=== PATIENT | female | born 1980 | race African-American/Black ===

== ENCOUNTER 2017-09-17 12:19 | Emergency (ER) | payer SELFPAY ==
[~2017-09-17] VITALS: Ht 160 cm; Wt 95.0 kg
[~2017-09-17 12:19] MED LIST: AMOXICILLIN500 MG PO; DIFLUCAN150 MG OR; FERROUS SULF325 M1 PO; HYDROCHLOROT12.5 MG PO; KEFLEX500 M1 PO; MEDROXYPROGESTE10 MG PO; NAPROSYN500 MG OR; NECON; PRILOSEC40 MG PO; PROTONIX40 M2 PO; VOSOL2 % OT; [UNRECOGNIZED DRUG - OTHER] PO
[2017-09-17 12:26] VITALS: BP 158/109
[2017-09-17] MEDS ORDERED: MOTRIN800 MG PO (12:42)
== END 2017-09-17 12:50 | disposition home or self-care (01) | DRG 563 ==
LOC: ED 12:19
DX: S46.812A Strain of other muscles, fascia and tendons at shoulder and upper arm level, left arm, initial encounter (principal); X50.0XXA Overexertion from strenuous movement or load, initial encounter; Y93.89 Activity, other specified; Y92.89 Other specified places as the place of occurrence of the external cause

== ENCOUNTER 2019-07-14 21:06 | Emergency (ER) | payer BC ==
[~2019-07-14] VITALS: Ht 160 cm; Wt 100.0 kg
[~2019-07-14 21:06] MED LIST changes: +MOTRIN800 MG PO
[2019-07-14 22:05] VITALS: BP 182/90
== END 2019-07-14 22:06 | disposition home or self-care (01) | DRG 605 ==
LOC: ED 21:06
PROC: 0HQ1XZZ Repair Face Skin, External Approach (ICD-10-PCS; principal; 2019-07-14)
DX: S01.412A Laceration without foreign body of left cheek and temporomandibular area, initial encounter (principal); I10 Essential (primary) hypertension; W01.110A Fall on same level from slipping, tripping and stumbling with subsequent striking against sharp glass, initial encounter; Y92.009 Unspecified place in unspecified non-institutional (private) residence as the place of occurrence of the external cause

== ENCOUNTER 2019-07-21 12:31 | Emergency (ER) | payer BC ==
[~2019-07-21] VITALS: Ht 160 cm; Wt 104.0 kg
[2019-07-21 13:10] VITALS: BP 135/77
== END 2019-07-21 13:10 | disposition home or self-care (01) | DRG 950 ==
LOC: ED 12:31
DX: S01.412D Laceration without foreign body of left cheek and temporomandibular area, subsequent encounter (principal); X58.XXXD Exposure to other specified factors, subsequent encounter

== ENCOUNTER 2020-06-08 08:50 | Observation (INO) | payer BC ==
[~2020-06-08] VITALS: Ht 160 cm; Wt 62.6 kg
[2020-06-08] VITALS (9 sets, daily range): BP systolic 119–163; BP diastolic 75–95
--- NOTE | 2020-06-08 09:18 | NUR ---
PATIENT AMBULATE TO ROOM WITH STEADY GAIT AND PHYSICIAN NOTIFIED OF PATIENT STATUS
[2020-06-08 10:04] LABS: HEMATOCRIT 34.4 % (37.0-47.0); IMMATURE GRANULOCYTES 0.8 % (0.0-5.0); MEAN CELL VOLUME 78.4 fL CALC (80.0-100.0); MEAN CORPUSCULAR HGB 21.9 pG CALC (26.0-32.0); MEAN CORPUSCULAR HGB CONC 27.9 g/dL CAL (32.0-36.0); NEUT# 6.08 thou/uL (2.00-7.15); RED BLOOD COUNT 4.39 mill/uL (4.20-5.60); RED CELL DISTRI WIDTH 17.9 % (11.5-15.5)
[2020-06-08 10:15] LABS: ALBUMIN 4.6 g/dL (3.2-5.0); ALKALINE PHOSPHATASE 60 u/l (38-126); AMYLASE 93 u/l (30-110); ANION GAP 12 (6-22 (CALC)); BILIRUBIN, TOTAL 0.3 mg/dL (0.0-1.4); BUN 11 mg/dL (7-17); BUN/CREATININE RATIO 18 (12-20 (CALC)); CARBON DIOXIDE 25 mmol/l (22-30); CHLORIDE 103 mmol/l (95-108); CREATININE 0.6 mg/dL (0.5-1.0); GFR > 60 ML/MIN (>=60 (CALC)); GFR FOR AFR.AMER. > 60 ML/MIN (>=60 (CALC)); HEMOGLOBIN 9.6 g/dl (12.0-16.0); LIPASE 109 u/l (23-300); SGOT/AST 23 u/l (14-36); SODIUM 137 mmol/l (137-146); TOTAL PROTEIN 8.4 g/dL (6.3-8.2)
--- NOTE | 2020-06-08 10:15 | NUR ---
PT STATES PPAIN REMAINS BUT IMPROVED, STILL A DULL ACHE BUT NOT LIKE IT WAS EARLIER. RAFAELS N/, CALL MARTINO WITHIN REACH.
--- NOTE | 2020-06-08 11:30 | NUR ---
INTO SEE PATIENT PLAN OF CARE DISCUSSED INCLUDING ADMISSIONA ND SURGERY, ALL QUESTIONS ANSWERED, PT GIVES VERBAL CONSENT
[2020-06-08 11:38] LABS: URINE BILIRUBIN - DIPSTICK NEGATIVE (NEGATIVE); URINE BLOOD DIPSTICK NEGATIVE (NEGATIVE); URINE COLOR YELLOW; URINE GLUCOSE - DIPSTICK NEGATIVE (NEGATIVE); URINE KETONE NEGATIVE (NEGATIVE); URINE LEUK ESTERASE TRACE (NEGATIVE); URINE NITRITE - DIPSTICK NEGATIVE (Negative); URINE PROTEIN - DIPSTICK TRACE mg/dL (NEG-TRACE); URINE UROBILINOGEN - DIPSTICK 0.2 E.U./dL (0.2)
--- NOTE | 2020-06-08 12:30 | NUR ---
IVF AND ABT INFUSING BC COMPLETED EARLIER. AWAITING PLANNED ADMISISION / OR.
--- NOTE | 2020-06-08 13:14 | NUR ---
AWARE OF ELEVATED B/P AND MEDICATION ORDERED, PT AWARE SHE WILL BE GOING TO OR SHORTLY. STATES SHE HAS HAD NOTHING TO EAT OR DRINK SINCE LAST PM AROUND 730.
--- NOTE | 2020-06-08 13:31 | NUR ---
OR AT BEDSIDE AWARE OF MEDICATED FOR HYPERTENSION AT 1325
--- NOTE | 2020-06-08 13:41 | NUR ---
PT RESPONDED WELL TO LABETOLOL B/P 174/75 PT EN ROUTE TO OR VIA OR STRETCHER WITH STAFF
--- NOTE | 2020-06-08 14:01 | NUR ---
CALLED TO GIVE REPORT TO MED SURG AWAITING CALL BACK FROM [facility]
--- NOTE | 2020-06-08 15:44 | NUR ---
PT ARRIVED TO [facility] ROOM 277 VIA STRETCHER ACCOMPAINED BY OR STAFF.PT HAD LAPAROSCOPIC CHOLECYSTECTOMY BY DR FIGUEROA. PT TRANSFERFROM STRETCHER TO BED WITH LITTLE DIFFICULTY. INTRODUCED SELF TO PT AND DISCUSSED POC. ASSESSMENT AND VITALS COMPLETED AT THIS TIME. RESPIRATIONS ARE EVEN AND UNLABORED WITH NO SIGNS OF DISTRESS. LUNG SOUND SARE DIMINISHED. HEART RHYTHM IS NORMAL. BOWEL SOUNDS AREACTIVE IN ALL QUADRANTS, LAST REPORTED BM 06/08/20. RADIAL AND PEDAL PUSLES ARE STRONG WITH NROMAL CAPILLARY REFILL #20 IN RAC RUNNING WITH NS AT 100ML ORDERED, SITE APPEARS HEALTHY AND PATENT. PT COMPLAINS OF 4/10 PAIN AT THIS TIME. PT APPEARS TO BE VERY DROWSY, ADVISED PT TO WAIT BEFORE ADMINISTERED PAIN MEDICATION, PT VERBALIZED UNDERSTANDING. PT INFORMED NWRITTER OF ALLERGIES TO PENICILLINS, ALLERGY ABDN APPLIED. PT ORIENTED TO ROOM AND CALL LIGHT SYSTEM. ALL SAEFTY PRECAUTIONS ARE IN PLACE WITH CALL LIGHT IN REACH. WILL CONTINUE TO MONITOR
--- NOTE | 2020-06-08 17:35 | NUR ---
DR FIGUEROA CALLED ABOUT PT BP AT THIS TIME. HYDRALAZINE 10 MG IV PUSH ORDERED.AWAITING FOR VERIFICATION FROM PHARMACY. RESPIRATIONS ARE EVEN AND UNLABROED WITH NO SIGNS OF DISTRESS.ALL SAFETY PRECAUTIONS ARE IN PLACE WITH CALL LIGHT IN REACH. WILL CONTINUE TO MONITOR
--- NOTE | 2020-06-08 19:00 | NUR ---
RECEIVED REPORT FROM NURSE DUONG PATIENT RESTING IN BED, WATCHING TV C/O ABDOMINAL PAIN PS 7, BREATHING EVEN UNLABORED, CALL LIGHT AT REACH.
--- NOTE | 2020-06-08 20:30 | NUR ---
PATIENT ALERT ORIENTED, ABLE TO MAKE NEEDS KNOWN, WITH ONGOING IV OF D5 1/2 NS @ 100CC/HR, LBM 06/08, AMBULATORY, ABDOMINAL INCISION WITH DERMABOND, DENIES NAUSEA/ VOMITING CALL LIGHT AT REACH.
--- NOTE | 2020-06-09 | NUR ---
PATIENT APPEARS TO BE SLEEPING WITH EYES CLOSED CALL LIGHT AT REACH.
[2020-06-09 03:41] VITALS: BP 133/83
--- NOTE | 2020-06-09 04:00 | NUR ---
PATIENT APPEARS TO BE SLEEPING WITH EYES CLOSED, BREATHING EVEN UNLABORED, NOT IN DISTRESS CALL LIGHT AT REACH.
[2020-06-09 05:20] LABS: ALBUMIN 3.3 g/dL (3.2-5.0); BILIRUBIN, TOTAL 0.4 mg/dL (0.0-1.4); TOTAL PROTEIN 6.1 g/dL (6.3-8.2)
[2020-06-09] MEDS ORDERED: PERCOCET 5/325M1 TAB PO (07:54)
[2020-06-09 08:00] VITALS: BP 164/81
--- NOTE | 2020-06-09 08:00 | NUR ---
ASSESSMENT IS COMPLETED: IV SITE IS FREE FROM REDNESS OR EDEMA. HR IS REG,PULSES ARE STRONG X4, ABD IS SOFT WITH ACTIVE BS. BREATH SOUNDS ARE CLEAR,BILATERALLY. INCISIONS ARE CDI.
--- NOTE | 2020-06-09 11:20 | NUR ---
PT'S IV SITE DISCONTINUED CATHETER INTACT. NO REDNESS OR EDEMA. DISCHARGE INSTRUCTIONS GIVEN TO PT AND VERBALIZED UNDERSTANDING. Discharge instructions given. Patient verbalizes understanding of same. Discharged in stable condition via Wheelchair to Home with family. All belongings sent with pt.
== END 2020-06-09 11:22 | disposition home or self-care (01) | DRG 419 ==
LOC: ED 08:50 → ED-I 11:00 → ED 11:15 → MS2 11:16
PROVIDERS: Family Medicine; ADMIT Surgery; ATTEND Surgery
PROC: 0FT44ZZ Resection of Gallbladder, Percutaneous Endoscopic Approach (ICD-10-PCS; principal; 2020-06-08)
DX: K80.00 Calculus of gallbladder with acute cholecystitis without obstruction (principal); I10 Essential (primary) hypertension; Z20.828 Contact with and (suspected) exposure to other viral communicable diseases
CPT/HCPCS: J0131; J2710; Q9967

== ENCOUNTER 2020-09-19 10:03 | Emergency (ER) | payer BC ==
[~2020-09-19] VITALS: Ht 160 cm; Wt 100.0 kg
[~2020-09-19 10:03] MED LIST changes: +PERCOCET 5/325M1 TAB PO
[2020-09-19] MEDS ORDERED: NAPROXEN500 MG PO (11:04)
[2020-09-19 11:28] VITALS: BP 168/89
== END 2020-09-19 11:28 | disposition home or self-care (01) | DRG 563 ==
LOC: ED 10:03
DX: S93.401A Sprain of unspecified ligament of right ankle, initial encounter (principal); X50.0XXA Overexertion from strenuous movement or load, initial encounter; Y92.009 Unspecified place in unspecified non-institutional (private) residence as the place of occurrence of the external cause

== ENCOUNTER 2020-11-12 14:51 | Emergency (ER) | payer BC ==
[~2020-11-12] VITALS: Ht 160 cm; Wt 111.0 kg
[~2020-11-12 14:51] MED LIST changes: +NAPROXEN500 MG PO
[2020-11-12 16:08] LABS: URINE BILIRUBIN - DIPSTICK NEGATIVE (NEGATIVE); URINE BLOOD DIPSTICK NEGATIVE (NEGATIVE); URINE COLOR YELLOW; URINE GLUCOSE - DIPSTICK NEGATIVE (NEGATIVE); URINE KETONE NEGATIVE (NEGATIVE); URINE LEUK ESTERASE NEGATIVE (NEGATIVE); URINE NITRITE - DIPSTICK NEGATIVE (Negative); URINE PROTEIN - DIPSTICK NEGATIVE (NEG-TRACE); URINE SPECIFIC GRAVITY 1.025; URINE UROBILINOGEN - DIPSTICK 0.2 E.U./dL (0.2)
[2020-11-12 16:22] LABS: HEMATOCRIT 31.8 % (37.0-47.0); IMMATURE GRANULOCYTES 0.2 % (0.0-5.0); MEAN CELL VOLUME 80.3 fL CALC (80.0-100.0); MEAN CORPUSCULAR HGB 22.7 pG CALC (26.0-32.0); MEAN CORPUSCULAR HGB CONC 28.3 g/dL CAL (32.0-36.0); NEUT# 2.11 thou/uL (2.00-7.15); RED BLOOD COUNT 3.96 mill/uL (4.20-5.60); RED CELL DISTRI WIDTH 15.9 % (11.5-15.5)
[2020-11-12 16:34] LABS: ALKALINE PHOSPHATASE 49 u/l (38-126); ANION GAP 10 (6-22 (CALC)); BILIRUBIN, TOTAL 0.3 mg/dL (0.0-1.4); BUN 11 mg/dL (7-17); BUN/CREATININE RATIO 16 (12-20 (CALC)); CARBON DIOXIDE 26 mmol/l (22-30); CHLORIDE 105 mmol/l (95-108); CREATININE 0.7 mg/dL (0.5-1.0); GFR > 60 ML/MIN (>=60 (CALC)); GFR FOR AFR.AMER. > 60 ML/MIN (>=60 (CALC)); LIPASE 186 u/l (23-300); POTASSIUM 3.5 mmol/l (3.5-5.1); SGOT/AST 23 u/l (14-36); SODIUM 138 mmol/l (137-146)
[2020-11-12 16:35] LABS: ALBUMIN 4.1 g/dL (3.2-5.0); TOTAL PROTEIN 7.5 g/dL (6.3-8.2)
[2020-11-12 18:35] VITALS: BP 144/65
== END 2020-11-12 18:35 | disposition home or self-care (01) | DRG 204 ==
LOC: ED 14:51
PROVIDERS: Family Medicine
DX: R07.81 Pleurodynia (principal); R51.9 Headache, unspecified